=== PATIENT | female | born 1955 | race Caucasian/White ===

== ENCOUNTER 2021-07-26 04:38 | Inpatient (IN) | payer MEDICARE, BC ==
[~2021-07-26] VITALS: Ht 177.8 cm; Wt 71.2 kg
--- NOTE | 2021-07-26 04:48 | NUR ---
pt bib ra for c/o left hip pain. pt a/o. has iv to right ac placed by ra.
--- NOTE | 2021-07-26 04:52 | NUR ---
Dr. Jean Baptiste at bedside for MSE.
[2021-07-26] MEDS ORDERED: MELO-107 PO (04:54)
[2021-07-26] MEDS ORDERED: GABA600T12 PO (04:54)
[2021-07-26] MEDS ORDERED: BUPR100T6 PO (04:54)
[2021-07-26] MEDS ORDERED: FLUO10CA29 PO (04:54)
[2021-07-26] MEDS ORDERED: KETOROLAC TROMETHAMINE 15 MG INJ ONE (05:15)
[2021-07-26] MEDS ORDERED: KETOROLAC TROMETHAMINE 15 MG INJ IVP ONE (05:15)
[2021-07-26] MEDS ORDERED: PROCHLORPERAZINE EDISYLATE 10 MG/2 ML VIAL ONE (05:15)
[2021-07-26] MEDS ORDERED: PROCHLORPERAZINE EDISYLATE 10 MG/2 ML VIAL IV ONE (05:15)
[2021-07-26] MEDS ORDERED: HYDROMORPHONE 2 MG/1 ML DISP.SYRIN ONE (05:15)
[2021-07-26] MEDS ORDERED: HYDROMORPHONE 1 MG/1 ML DISP.SYRIN IV ONE (05:15)
[2021-07-26 05:45] LABS: HEMATOCRIT 35.2 % (31.2-41.9); MEAN CORPUSCULAR HEMOGLOBIN 30.5 uug (24.7-32.8); MEAN CORPUSCULAR VOLUME 87.3 fL (75.5-95.3); PLATELET COUNT (AUTO) 231 K/uL (179-408)
--- NOTE | 2021-07-26 06:17 | NUR ---
f/c insertion was unsuccessful by multiple attempts by 3 nurses. MD momin.
[2021-07-26 06:20] LABS: BILIRUBIN,DIRECT 0.1 mg/dL (0.0-0.2); BILIRUBIN,TOTAL 0.3 mg/dL (0.2-1.0); CREATININE 0.9 mg/dL (0.6-1.3); TOTAL PROTEIN, SERUM 6.7 g/dL (6.4-8.2)
--- NOTE | 2021-07-26 06:34 | NUR ---
second call placed to [facility] for admission.
--- NOTE | 2021-07-26 07:52 | NUR ---
[facility] WAS CALLED WAITING FOR CALLBACK.
--- NOTE | 2021-07-26 08:05 | NUR ---
FRED PERKINS FROM [facility] CALLED PATIENT ACCEPTED FOR ADMISSION.
[2021-07-26] MEDS ORDERED: GABAPENTIN 300 MG CAPSULE PO SCH (09:00)
[2021-07-26] MEDS ORDERED: MORPHINE SULFATE 2 MG/1 ML DISP.SYRIN IV PRN (09:30)
[2021-07-26] MEDS ORDERED: REMEDY ESSENTIAL ZINC PASTE 113 GM TP PRN (09:30)
[2021-07-26] MEDS ORDERED: ONDANSETRON 4 MG/2 ML VIAL IV PRN (09:30)
--- NOTE | 2021-07-26 09:30 | NUR ---
Pt. admitted to [facility] , under care of CARE SUPPORT REPRESENTATIVE GREGORIO. Belongs List completed
[2021-07-26 09:40] VITALS: BP 121/57
[2021-07-26] MEDS ORDERED: EPHEDRINE SULFATE 50 MG/ML AMPUL ONE (10:18)
[2021-07-26] MEDS ORDERED: KETOROLAC TROMETHAMINE 30 MG INJ ONE (10:18)
[2021-07-26] MEDS ORDERED: CEFAZOLIN 1 G VIAL ONE (10:18)
[2021-07-26] MEDS ORDERED: LIDOCAINE-MPF 2% 5 ML VIAL ONE (10:18)
[2021-07-26] MEDS ORDERED: PROPOFOL 200 MG/20 ML BOTTLE ONE (10:18)
[2021-07-26] MEDS ORDERED: DEXAMETHASONE SOD PHOSPHATE 4 MG INJ ONE (10:18)
--- NOTE | 2021-07-26 10:20 | NUR ---
Received pt from ER after falling out of bed while sleeping at home. Pt lives alone and called for ambulance herself with her cell phone. Pt is a/o x 4, never been hospitalized before and has not had a fall prior to this admission. Pt is vaccinated with Pfizer x 2 plus two additional boosters. Pt is admitted to [facility] floor for left hip fracture, complains of pain. Vitals on admission 98.5 temp, BP 121/57, HR 75, rr18, SpO2 96% on room air. Comfort measures provided, call light within reach, will continue to monitor Pt placed on NPO per order. IV Fluids provided.
[2021-07-26] MEDS: IV D5 1/2 NS 1000 ML 1,000 ML IV PRN (10:55)
[2021-07-26] MEDS: MORPHINE SULFATE 4 MG/1 ML DISP.SYRIN IV PRN ×3 (11:56→20:26)
[2021-07-26] MEDS ORDERED: BUPR-319 PO (12:06)
[2021-07-26 15:46] VITALS: BP 126/62
--- NOTE | 2021-07-26 15:52 | NUR ---
Procedure consent signed by patient, she is aware of procedure details, Dr Merritt consulted.
--- NOTE | 2021-07-26 18:51 | NUR ---
Pt will have a procedure tomorrow at 0830, crab picker at 0800. Blood consent signed, procedure consent signed. Pt will be placed NPO at midnight. Dr. Merritt will be doing an IM nailing of the left intertrochanteric hip fracture. Preop checklist completed.
--- NOTE | 2021-07-26 19:30 | NUR ---
Received pt awake, alert and orientedx4. Pt in no acute respiratory distress. Iv intact. Pt stating she is in pain and want stronger pain medication and her depression medication.Safety and comfort provided. Will continue to monitor.
--- NOTE | 2021-07-26 19:45 | NUR ---
Notify iphone developer regarding pt concern. Americo IBARRA ordered to continue the pt depression medication Wellbutrin xl 300mg .
[2021-07-26 20:00] VITALS: BP 137/71
--- NOTE | 2021-07-26 22:29 | NUR ---
at morphine 4mg prn given for pt left hip pain. Pt tolerated it well.After an hour pt stated it felt a bit better but there's still pain. Will continue to monitor.
[2021-07-27] VITALS (7 sets, daily range): BP systolic 112–142; BP diastolic 61–77
[2021-07-27] MEDS: HYDROMORPHONE 1 MG/1 ML DISP.SYRIN IV PRN ×2 (00:56→05:04)
[2021-07-27] MEDS: IV D5 1/2 NS 1000 ML 1,000 ML IV PRN (01:01)
--- NOTE | 2021-07-27 02:03 | NUR ---
Dilaudid 0.5mg prn given to pt for left hip pain .Pt tolerated it well. After an hour pt stated she felt better but still feel a bit painful.Will continue to monitor. Addendum: 07/27/21 at 0513 by JOHN CHRISTINA RN Dilaudid 0.5mg prn given at 0056H for left hip pain.Pt tolerated it well. After an hour pt stated she felt better but still feel a bit painful.Will continue to monitor.
--- NOTE | 2021-07-27 05:07 | NUR ---
0504H Dilaudid 0.5mg prn given to pt for left hip pain. Pt tolerated it well. Will continue to monitor.
--- NOTE | 2021-07-27 06:07 | NUR ---
Pt Dilaudid effective .Pt stated pain subsided. Pt slept intermittently. Iv intact. Preop checklist done. Safety and comfort provided. Vital signs within normal limit. All needs are met. Pugh catheter intact. Will endorse to incoming nurse for continuity of care.
[2021-07-27 07:46] LABS: MEAN CORPUSCULAR HEMOGLOBIN 29.9 uug (24.7-32.8); MEAN CORPUSCULAR VOLUME 87.4 fL (75.5-95.3); PLATELET COUNT (AUTO) 197 K/uL (179-408)
[2021-07-27] MEDS ORDERED: VANCOMYCIN 1000 MG VIAL ONE (07:46)
[2021-07-27] MEDS ORDERED: BUPIVACAINE PF 0.5% 30 ML VIAL ONE (07:46)
[2021-07-27] MEDS: PANTOPRAZOLE SODIUM 40 MG VIAL IV SCH (08:04)
[2021-07-27 08:05] LABS: CREATININE 0.7 mg/dL (0.6-1.3); POTASSIUM 3.8 mmol/L (3.5-5.1)
[2021-07-27] MEDS: GABAPENTIN 300 MG CAPSULE PO SCH (08:15)
--- NOTE | 2021-07-27 08:15 | NUR ---
Pt is a/o x 4, IV sites intact and patent. Pt has been picked up by OR nurse to have procedure at 0830. Family and friends aware of surgery time, will contact when pt returns from surgery.
[2021-07-27] MEDS ORDERED: HYDROMORPHONE 2 MG/1 ML DISP.SYRIN ONE (08:44)
[2021-07-27] MEDS ORDERED: Medication Not On Formulary EA (Gabapentin 600 MG) PO SCH (09:00)
[2021-07-27] MEDS ORDERED: HYDROMORPHONE 1 MG/1 ML DISP.SYRIN ONE (10:50)
--- NOTE | 2021-07-27 12:05 | NUR ---
Pt has returned form surgery, vitals 98.2 temp, BP 130/68, HR 70 SpO2 94% on room air. Pt is to be placed on fluids, orders for full liquid diet have been placed by MD, when tolerating food, may be placed on heplock. Pt to be out of bed tomorrow 07/27/21 with physical therapy. Left leg to be 50% weight-baring with front wheel walker. Family notified of return from surgery and pt status. Comfort measures provided, call light within reach, Will continue to monitor.
[2021-07-27] MEDS: IV D5W-0.45% NS +20 KCL 1,000 ML IV PRN (15:46)
[2021-07-27] MEDS: CEFAZOLIN 1 G in IV DEXTROSE 5% 50 ML IV SCH (16:53)
[2021-07-27] MEDS: HYDROCODONE/APAP 10-325 MG TABLET PO PRN (18:52)
--- NOTE | 2021-07-27 19:01 | NUR ---
Administered PRN pain medication for hip pain. Pt is now comfortable in bed, will endorse to shift supervisor rn.
--- NOTE | 2021-07-27 19:30 | NUR ---
RECEIVED PT ALERT AND ORIENTED X 4. NO RESPIRATORY DISTRESS. IV SITE ON L WRIST PATENT AND INTACT. D5 NS+KCL INFUSING AT 75 ML/HR. PEREZ CATH DRAINING WELL. CALL LIGHT IN REACH. SAFETY MEASURES PLACED. WILL CONTINUE TO MONITOR.
[2021-07-27] MEDS: MORPHINE SULFATE 4 MG/1 ML DISP.SYRIN IV PRN (23:02)
--- NOTE | 2021-07-27 23:02 | NUR ---
PT COMPLAINING OF HIP PAIN. PAIN SCORE OF 9/10. MORPHINE ADMINISTERED. WILL REASSESS.
--- NOTE | 2021-07-28 00:02 | NUR ---
PER PT, PAIN SUBSIDED TO 2/10. PT COMFORTABLE IN BED. VITAL SIGNS WNL. PEREZ CATH INTACT. CALL LIGHT WITHIN REACH. WILL CONTINUE TO MONITOR.
[2021-07-28] MEDS: CEFAZOLIN 1 G in IV DEXTROSE 5% 50 ML IV SCH (01:17)
--- NOTE | 2021-07-28 03:00 | NUR ---
PT REQUESTED FOR PAIN MEDS FOR HIP PAIN WITH PAIN SCORE OF 7/10. NORCO ADMINISTERED. PLACED PT IN HIGH FOWLERS. ASSISTED TO DRINK WATER. ASPIRATION PRECAUTION DONE.
[2021-07-28] MEDS: HYDROCODONE/APAP 10-325 MG TABLET PO PRN (03:01)
[2021-07-28 04:00] VITALS: BP 124/69
[2021-07-28 06:28] LABS: HEMATOCRIT 29.7 % (31.2-41.9); MEAN CORPUSCULAR HEMOGLOBIN 30.3 uug (24.7-32.8); MEAN CORPUSCULAR VOLUME 86.9 fL (75.5-95.3); PLATELET COUNT (AUTO) 156 K/uL (179-408)
[2021-07-28 06:42] LABS: CREATININE 0.8 mg/dL (0.6-1.3)
[2021-07-28] MEDS: IV D5W-0.45% NS +20 KCL 1,000 ML IV PRN (06:47)
[2021-07-28] MEDS: GABAPENTIN 300 MG CAPSULE PO SCH (09:05)
[2021-07-28] MEDS: PANTOPRAZOLE SODIUM 40 MG VIAL IV SCH (09:05)
[2021-07-28] MEDS: ENOXAPARIN SODIUM 40 MG/0.4 ML DISP.SYRIN SQ SCH (09:06)
--- NOTE | 2021-07-28 09:15 | NUR ---
Pt is a/o x 4, no complaint of pain this morning. Pt is pending physical therapy evaluation. Will continue to monitor.
[2021-07-28] MEDS ORDERED: MIRALAX 17 GM POWD.PACK PO PRN (11:45)
[2021-07-28 12:10] VITALS: BP 106/51
[2021-07-28] MEDS: IV LACTATED RINGERS SOLUTION 1,000 ML IV PRN (14:33)
[2021-07-28 16:13] VITALS: BP 118/63
[2021-07-28] MEDS: ACETAMINOPHEN 325 MG TABLET PO PRN (16:27)
[2021-07-28] MEDS: MORPHINE SULFATE 4 MG/1 ML DISP.SYRIN IV PRN ×2 (16:27→20:22)
[2021-07-28 20:54] VITALS: BP 117/64
[2021-07-29] MEDS: MORPHINE SULFATE 4 MG/1 ML DISP.SYRIN IV PRN ×3 (01:36→08:34)
[2021-07-29] MEDS: ACETAMINOPHEN 325 MG TABLET PO PRN (01:45)
[2021-07-29] MEDS: IV LACTATED RINGERS SOLUTION 1,000 ML IV PRN (03:50)
[2021-07-29 04:45] VITALS: BP 132/72
[2021-07-29 06:38] LABS: HEMATOCRIT 27.9 % (31.2-41.9); MEAN CORPUSCULAR HEMOGLOBIN 30.6 uug (24.7-32.8); MEAN CORPUSCULAR VOLUME 86.6 fL (75.5-95.3); PLATELET COUNT (AUTO) 153 K/uL (179-408)
[2021-07-29 07:42] LABS: CREATININE 0.7 mg/dL (0.6-1.3); MAGNESIUM 1.9 mg/dL (1.8-2.4); POTASSIUM 3.9 mmol/L (3.5-5.1)
[2021-07-29] MEDS: PANTOPRAZOLE SODIUM 40 MG VIAL IV SCH (08:31)
[2021-07-29] MEDS: GABAPENTIN 300 MG CAPSULE PO SCH (08:34)
[2021-07-29] MEDS: ENOXAPARIN SODIUM 40 MG/0.4 ML DISP.SYRIN SQ SCH (09:18)
[2021-07-29 11:35] VITALS: BP 91/45
--- NOTE | 2021-07-29 13:07 | NUR ---
Discharged patient to ARU. No acute distress noted. Left hip surgery dressing intact, no drainage noted. Belonging list signed. Discharge instructions given noted with understanding.
[2021-07-30] MEDS ORDERED: PANTOPRAZOLE SODIUM 40 MG TABLET.DR PO SCH (07:00)
== END 2021-07-29 13:13 | DRG 482 ==
LOC: ER 04:41 → MEDSURG3 09:13
PROVIDERS: ADMIT Nurse Practitioner Family; ATTEND Nurse Practitioner Family
PROC: 0QS706Z Reposition Left Upper Femur with Intramedullary Internal Fixation Device, Open Approach (ICD-10-PCS; principal; 2021-07-27)
DX: S72.142A Displaced intertrochanteric fracture of left femur, initial encounter for closed fracture (principal); W06.XXXA Fall from bed, initial encounter; F32.A Depression, unspecified; F41.9 Anxiety disorder, unspecified; Z20.822 Contact with and (suspected) exposure to COVID-19; R73.9 Hyperglycemia, unspecified; Y93.9 Activity, unspecified; Y92.013 Bedroom of single-family (private) house as the place of occurrence of the external cause
CPT/HCPCS: 36415; 51702; 71045; 73502; 73503; 83735; 85025; 85730; 86850; 86900; 86901; 93005; 93307; 97161; A4649; A4663; A6209; C1713; C9113; G0378; J0690; J0780; J1100; J1170; J1650; J1885; J2270; J3370; J3490; J7060; J7120

== ENCOUNTER 2021-07-29 13:31 | Inpatient (IN) | payer MEDICARE, BC ==
[~2021-07-29] VITALS: Ht 177.8 cm; Wt 71.2 kg
[~2021-07-29 13:31] MED LIST: BUPR-319 PO; FLUO10CA29 PO; GABA600T12 PO; MELO-107 PO
[2021-07-29 16:00] VITALS: BP 114/48
[2021-07-29] MEDS ORDERED: MORPHINE SULFATE 2 MG/1 ML DISP.SYRIN IV PRN (16:30)
[2021-07-29] MEDS ORDERED: MIRALAX 17 GM POWD.PACK PO PRN (16:30)
[2021-07-29] MEDS: DOCUSATE SODIUM 250 MG CAPSULE PO SCH (16:40)
[2021-07-29] MEDS ORDERED: OXYCODONE HCL 5 MG TABLET PO PRN (17:45)
--- NOTE | 2021-07-29 18:54 | NUR ---
At 1330 patient admitted to ARU from [facility]. Incision site still with original dressing, dry and intact, no noted drainage.
[2021-07-29 20:31] VITALS: BP 113/60
[2021-07-29] MEDS: REMEDY ESSENTIAL ZINC PASTE 113 GM TOP SCH (20:58)
[2021-07-30] MEDS: OXYCODONE HCL 5 MG TABLET PO PRN ×6 (01:06→23:42)
[2021-07-30 04:43] VITALS: BP 138/71
--- NOTE | 2021-07-30 06:22 | NUR ---
Noted with pimple like, warm to touch on the right medial arm. wound consult ordered. photo in chart. will continue to monitor.
--- NOTE | 2021-07-30 06:41 | NUR ---
Patient remained stable during the shift. No acute distress identified. PRN pain med given as ordered. Incision site intact, no bleeding, original dressing intact. FC intact, draining well. Patient denies discomfort. All needs attended. All due meds given. kept call light within reach. will endorse to the next shift for continuity of care.
--- NOTE | 2021-07-30 07:30 | NUR ---
Received patient in bed awake alert and oriented 3. Patient is on room air. Bed in high silva position No respiratory distress noted at this time. Patient is on seizure precautions. Safety precautions are in place. Will continue to monitor.
[2021-07-30 09:40] VITALS: BP 116/72
[2021-07-30] MEDS: buPROPion XL 150 MG TAB.SR.24H PO SCH (10:08)
[2021-07-30] MEDS: FLUOXETINE HCL 20 MG CAPSULE PO SCH (10:08)
[2021-07-30] MEDS: GABAPENTIN 300 MG CAPSULE PO SCH (10:08)
[2021-07-30] MEDS: DOCUSATE SODIUM 250 MG CAPSULE PO SCH (10:09)
[2021-07-30] MEDS: REMEDY ESSENTIAL ZINC PASTE 113 GM TOP SCH ×2 (10:20→22:17)
[2021-07-30] MEDS: ENOXAPARIN SODIUM 40 MG/0.4 ML DISP.SYRIN SQ SCH (14:53)
[2021-07-30 18:11] VITALS: BP 96/49
--- NOTE | 2021-07-30 19:15 | NUR ---
Received patient on bed, awake, no shortness of breath, alert and oriented x3-4, No complaint of pain at this time. Safety precautions provided, call light placed within reach.
--- NOTE | 2021-07-30 20:06 | NUR ---
Pt left in bed, no sign of distress noted at this time. Pt was up and walking with PT earlier in the day. She did report some dizziness on standing but stated she felt better once she sat down. All medications given as ordered. Safety precautions implemented. Will endorse to oncoming nurse.
--- NOTE | 2021-07-30 20:20 | NUR ---
Complaint of pain at the operative site using the call light , oxycodone 10mg PO given, Pain relieved after an hour administration.
[2021-07-30 20:21] VITALS: BP 107/58
[2021-07-31] MEDS: OXYCODONE HCL 5 MG TABLET PO PRN ×5 (03:51→21:56)
[2021-07-31 04:21] VITALS: BP 105/63
--- NOTE | 2021-07-31 06:08 | NUR ---
Slept intermittently, no shortness of breath noted. oxycodone given 3x within the shift. Repositioned for comfort, Vitally stable.
[2021-07-31 06:47] LABS: HEMATOCRIT 25.4 % (31.2-41.9); MEAN CORPUSCULAR HEMOGLOBIN 30.7 uug (24.7-32.8); MEAN CORPUSCULAR VOLUME 86.5 fL (75.5-95.3); PLATELET COUNT (AUTO) 212 K/uL (179-408)
[2021-07-31 07:30] VITALS: BP 125/62
[2021-07-31] MEDS: GABAPENTIN 300 MG CAPSULE PO SCH (08:05)
[2021-07-31] MEDS: ENOXAPARIN SODIUM 40 MG/0.4 ML DISP.SYRIN SQ SCH (08:05)
[2021-07-31] MEDS: FLUOXETINE HCL 20 MG CAPSULE PO SCH (08:06)
[2021-07-31] MEDS: buPROPion XL 150 MG TAB.SR.24H PO SCH (08:06)
[2021-07-31] MEDS: REMEDY ESSENTIAL ZINC PASTE 113 GM TOP SCH ×2 (08:06→20:08)
[2021-07-31] MEDS: DOCUSATE SODIUM 250 MG CAPSULE PO SCH (08:06)
[2021-07-31] MEDS: MIRALAX 17 GM POWD.PACK PO SCH ×2 (09:00→18:05)
[2021-07-31 15:26] VITALS: BP 97/55
[2021-07-31 20:24] VITALS: BP 108/56
[2021-08-01] MEDS ORDERED: NEOMY/BACITRAC/POLYMI OINT 28.35 GM TUBE TOP PRN (00:15)
[2021-08-01] MEDS: ACETAMINOPHEN 325 MG TABLET PO PRN (00:26)
[2021-08-01] MEDS: ZOLPIDEM 5 MG TABLET PO PRN (00:26)
[2021-08-01 04:24] VITALS: BP 128/60
[2021-08-01 07:47] VITALS: BP 142/69
[2021-08-01] MEDS: DOCUSATE SODIUM 250 MG CAPSULE PO SCH (08:23)
[2021-08-01] MEDS: buPROPion XL 150 MG TAB.SR.24H PO SCH (08:23)
[2021-08-01] MEDS: MORPHINE SULFATE SR 15 MG TABLET.SA PO SCH ×2 (08:23→20:38)
[2021-08-01] MEDS: FLUOXETINE HCL 20 MG CAPSULE PO SCH (08:23)
[2021-08-01] MEDS: GABAPENTIN 300 MG CAPSULE PO SCH (08:23)
[2021-08-01] MEDS: MIRALAX 17 GM POWD.PACK PO SCH (08:23)
[2021-08-01] MEDS: ENOXAPARIN SODIUM 40 MG/0.4 ML DISP.SYRIN SQ SCH (08:24)
[2021-08-01] MEDS: REMEDY ESSENTIAL ZINC PASTE 113 GM TOP SCH ×2 (08:25→20:37)
--- NOTE | 2021-08-01 09:05 | NUR ---
INDIVIDUALIZED PLAN OF CARE
--- NOTE | 2021-08-01 11:27 | NUR ---
WOUND CARE CONSULT: PT SEEN FOR SMALL CRUSTED RAISED AREA WITHOUT DRAINAGE TO RT ARM (NEAR ANTECUBITAL REGION). RECOMMENDATIONS MADE FOR WOUND CARE/SKIN PROTECTION. DISCUSSED WITH NURSING STAFF. Addendum: 08/01/21 at 1129 by CATHY HOOD RN Amended: Links added.
[2021-08-01] MEDS: NEOMY/BACITRAC/POLYMI OINT 28.35 GM TUBE TOP SCH (11:45)
[2021-08-01 12:00] VITALS: BP 114/49
[2021-08-01 16:00] VITALS: BP 113/56
[2021-08-01] MEDS: OXYCODONE HCL 5 MG TABLET PO PRN (16:07)
--- NOTE | 2021-08-01 18:33 | NUR ---
Patient received care well throughout shift with minimal complaints of pain or distress during shift. Wound management completed. Pain managed by pharmacological means. Bed left in lowest position with call light within reach. Comfort measures provided. Will endorse information to PM nurse.
[2021-08-01 20:42] VITALS: BP 127/52
[2021-08-02 04:54] VITALS: BP 134/62
[2021-08-02 07:52] VITALS: BP 130/73
[2021-08-02] MEDS: MIRALAX 17 GM POWD.PACK PO SCH (09:21)
[2021-08-02] MEDS: GABAPENTIN 300 MG CAPSULE PO SCH (09:21)
[2021-08-02] MEDS: FLUOXETINE HCL 20 MG CAPSULE PO SCH (09:21)
[2021-08-02] MEDS: DOCUSATE SODIUM 250 MG CAPSULE PO SCH (09:21)
[2021-08-02] MEDS: buPROPion XL 150 MG TAB.SR.24H PO SCH (09:21)
[2021-08-02] MEDS: ENOXAPARIN SODIUM 40 MG/0.4 ML DISP.SYRIN SQ SCH (09:28)
[2021-08-02] MEDS: NEOMY/BACITRAC/POLYMI OINT 28.35 GM TUBE TOP SCH (09:29)
[2021-08-02] MEDS: REMEDY ESSENTIAL ZINC PASTE 113 GM TOP SCH ×2 (09:29→20:52)
[2021-08-02] MEDS: MORPHINE SULFATE SR 15 MG TABLET.SA PO SCH ×2 (09:30→20:52)
[2021-08-02] MEDS: ENSURE WITH FIBER 237 ML LIQUID (CHOCOLATE) PO SCH (09:31)
--- NOTE | 2021-08-02 10:19 | NUR ---
INTERDISCIPLINARY TEAM CONFERENCE
--- NOTE | 2021-08-02 11:43 | NUR ---
Dr. Avery Soni in the unit and received an order to remove Pugh catheter.
[2021-08-02 16:00] VITALS: BP 98/52
--- NOTE | 2021-08-02 16:00 | NUR ---
Patient voiding freely with assistance to the bathroom. She denies any pain or discomfort at this time. Assisted with her needs. Call light and frequently used items within reach.
[2021-08-02 20:00] VITALS: BP 97/51
[2021-08-03 04:00] VITALS: BP 103/58
--- NOTE | 2021-08-03 06:25 | NUR ---
Slept well. No complaint presented. Needs attended and met. Continue current rehab plan of care.
[2021-08-03 07:42] VITALS: BP 109/60
[2021-08-03] MEDS: DOCUSATE SODIUM 250 MG CAPSULE PO SCH (08:28)
[2021-08-03] MEDS: FLUOXETINE HCL 20 MG CAPSULE PO SCH (08:28)
[2021-08-03] MEDS: GABAPENTIN 300 MG CAPSULE PO SCH (08:28)
[2021-08-03] MEDS: MIRALAX 17 GM POWD.PACK PO SCH (08:28)
[2021-08-03] MEDS: buPROPion XL 150 MG TAB.SR.24H PO SCH (08:28)
[2021-08-03] MEDS: MORPHINE SULFATE SR 15 MG TABLET.SA PO SCH ×2 (08:29→21:05)
[2021-08-03] MEDS: NEOMY/BACITRAC/POLYMI OINT 28.35 GM TUBE TOP SCH (08:31)
[2021-08-03] MEDS: ENOXAPARIN SODIUM 40 MG/0.4 ML DISP.SYRIN SQ SCH (08:31)
[2021-08-03] MEDS: REMEDY ESSENTIAL ZINC PASTE 113 GM TOP SCH ×2 (08:31→21:02)
[2021-08-03] MEDS: ENSURE WITH FIBER 237 ML LIQUID (CHOCOLATE) PO SCH (08:32)
[2021-08-03 15:41] VITALS: BP 94/44
--- NOTE | 2021-08-03 18:40 | NUR ---
Patient remains alert, oriented x 4, not in any form of distress, on room air. She denies any pain or discomfort at this time. Patient is compliant with medications and care. Assist with her needs promptly. Call light and frequently used items placed within patient's reach.
[2021-08-03 20:00] VITALS: BP 104/64
[2021-08-04] MEDS: OXYCODONE HCL 5 MG TABLET PO PRN ×4 (01:27→22:51)
[2021-08-04 04:06] VITALS: BP 115/63
--- NOTE | 2021-08-04 05:29 | NUR ---
Received to care, lying in bed, pleasant upon approach. Call light in reach, all needs provided for. PRN oXY IR was given at 0127 for 8/10 pain to left hip. She fell asleep, but reported this morning that she continues to have good relief, even when ambulating to the bathroom. Her routine OxyContin was given at bedtime, but her pain was only around 5/10, at that time. Will continue to monitor closely.
[2021-08-04 08:04] VITALS: BP 128/56
[2021-08-04] MEDS: GABAPENTIN 300 MG CAPSULE PO SCH (09:59)
[2021-08-04] MEDS: buPROPion XL 150 MG TAB.SR.24H PO SCH (10:00)
[2021-08-04] MEDS: MIRALAX 17 GM POWD.PACK PO SCH (10:00)
[2021-08-04] MEDS: FLUOXETINE HCL 20 MG CAPSULE PO SCH (10:00)
[2021-08-04] MEDS: DOCUSATE SODIUM 250 MG CAPSULE PO SCH (10:00)
[2021-08-04] MEDS: MORPHINE SULFATE SR 15 MG TABLET.SA PO SCH ×2 (10:01→20:31)
[2021-08-04] MEDS: REMEDY ESSENTIAL ZINC PASTE 113 GM TOP SCH ×2 (10:02→20:31)
[2021-08-04] MEDS: NEOMY/BACITRAC/POLYMI OINT 28.35 GM TUBE TOP SCH (10:02)
[2021-08-04] MEDS: ENSURE WITH FIBER 237 ML LIQUID (CHOCOLATE) PO SCH (10:05)
[2021-08-04] MEDS: ENOXAPARIN SODIUM 40 MG/0.4 ML DISP.SYRIN SQ SCH (10:07)
[2021-08-04 16:00] VITALS: BP 103/45
--- NOTE | 2021-08-04 19:15 | NUR ---
Received patient on bed, awake, not in respiratory distress, no complaint of pain at this time. Safety precautions provided. Call light placed within reach.
[2021-08-04 20:14] VITALS: BP 99/55
[2021-08-04] MEDS: ZOLPIDEM 5 MG TABLET PO PRN (20:31)
[2021-08-05] MEDS: OXYCODONE HCL 5 MG TABLET PO PRN (04:27)
[2021-08-05 04:41] VITALS: BP 154/72
--- NOTE | 2021-08-05 05:43 | NUR ---
Slept intermittently, complaint of paint at operative site, due pain medicine given, oycontin 10mg PO given 2x within the shift. Refused to get out of bed for bathroom, patient state shes more comfortable getting out bed at daytime . Needs stool softener, for continuity of care.
[2021-08-05 07:25] VITALS: BP 120/69
[2021-08-05] MEDS: MORPHINE SULFATE SR 15 MG TABLET.SA PO SCH ×2 (07:54→20:26)
[2021-08-05] MEDS: DOCUSATE SODIUM 250 MG CAPSULE PO SCH (08:01)
[2021-08-05] MEDS: buPROPion XL 150 MG TAB.SR.24H PO SCH (08:01)
[2021-08-05] MEDS: FLUOXETINE HCL 20 MG CAPSULE PO SCH (08:01)
[2021-08-05] MEDS: GABAPENTIN 300 MG CAPSULE PO SCH (08:02)
[2021-08-05] MEDS: MIRALAX 17 GM POWD.PACK PO SCH (08:02)
[2021-08-05] MEDS: ENSURE WITH FIBER 237 ML LIQUID (CHOCOLATE) PO SCH (08:02)
[2021-08-05] MEDS: REMEDY ESSENTIAL ZINC PASTE 113 GM TOP SCH ×2 (08:10→20:27)
[2021-08-05] MEDS: NEOMY/BACITRAC/POLYMI OINT 28.35 GM TUBE TOP SCH (08:10)
[2021-08-05] MEDS: ENOXAPARIN SODIUM 40 MG/0.4 ML DISP.SYRIN SQ SCH (08:10)
[2021-08-05 15:06] VITALS: BP 120/80
--- NOTE | 2021-08-05 19:00 | NUR ---
Received patient on bed, awake, and oriented x3-4, no sogn sof respiratory distress, no complaint of pain at this time. Safety precautions provided, call light placed within reach.
[2021-08-05] MEDS ORDERED: BISACODYL 10 MG SUPP.RECT RC PRN (19:45)
[2021-08-05 19:55] VITALS: BP 95/52
[2021-08-06] MEDS: OXYCODONE HCL 5 MG TABLET PO PRN ×2 (00:28→05:36)
[2021-08-06] MEDS ORDERED: BISACODYL 10 MG SUPP.RECT RC PRN ×2 (03:03→07:27)
[2021-08-06 04:19] VITALS: BP 124/63
--- NOTE | 2021-08-06 05:37 | NUR ---
No bowel movement for 4 days,Bisacodyl 1 suppository given per rectum.
--- NOTE | 2021-08-06 05:49 | NUR ---
Slept intermittently, went out of bed 2x for voiding in the bathroom. Received oxycodone 2x within the shift, pain reduced after an hour of administration. Vitally stable. For continuity of care.
--- NOTE | 2021-08-06 06:30 | NUR ---
Went to the bathroom with walker with assist, with large bowel movement, soft in consistency, brown color.
[2021-08-06] MEDS: MORPHINE SULFATE SR 15 MG TABLET.SA PO SCH ×2 (08:20→20:21)
[2021-08-06] MEDS: buPROPion XL 150 MG TAB.SR.24H PO SCH (08:21)
[2021-08-06] MEDS: DOCUSATE SODIUM 250 MG CAPSULE PO SCH (08:21)
[2021-08-06] MEDS: ENOXAPARIN SODIUM 40 MG/0.4 ML DISP.SYRIN SQ SCH (08:21)
[2021-08-06] MEDS: GABAPENTIN 300 MG CAPSULE PO SCH (08:21)
[2021-08-06] MEDS: MIRALAX 17 GM POWD.PACK PO SCH (08:22)
[2021-08-06] MEDS: ENSURE WITH FIBER 237 ML LIQUID (CHOCOLATE) PO SCH (08:22)
[2021-08-06] MEDS: FLUOXETINE HCL 20 MG CAPSULE PO SCH (08:22)
[2021-08-06] MEDS: NEOMY/BACITRAC/POLYMI OINT 28.35 GM TUBE TOP SCH (08:23)
[2021-08-06] MEDS: REMEDY ESSENTIAL ZINC PASTE 113 GM TOP SCH ×2 (08:23→20:22)
[2021-08-06 08:40] VITALS: BP 122/63
[2021-08-06 16:14] VITALS: BP 106/55
--- NOTE | 2021-08-06 19:15 | NUR ---
Received patient on bed, awake, no complaint of pain at this time, not in respiratory distress, with dressing at left hip and lateral side of left upper leg. Safety precautions provided, call light within reach.
[2021-08-06 20:41] VITALS: BP 90/40
[2021-08-07] MEDS: OXYCODONE HCL 5 MG TABLET PO PRN ×2 (00:05→06:01)
[2021-08-07 04:35] VITALS: BP 119/65
--- NOTE | 2021-08-07 05:25 | NUR ---
Slept well within the shift, no shortness of breath, received oxycodone 2x within the shift. Vitally stable. For continuity of care.
[2021-08-07 08:01] VITALS: BP 123/57
[2021-08-07] MEDS: FLUOXETINE HCL 20 MG CAPSULE PO SCH (08:43)
[2021-08-07] MEDS: buPROPion XL 150 MG TAB.SR.24H PO SCH (08:43)
[2021-08-07] MEDS: DOCUSATE SODIUM 250 MG CAPSULE PO SCH (08:43)
[2021-08-07] MEDS: GABAPENTIN 300 MG CAPSULE PO SCH (08:43)
[2021-08-07] MEDS: MIRALAX 17 GM POWD.PACK PO SCH (08:44)
[2021-08-07] MEDS: REMEDY ESSENTIAL ZINC PASTE 113 GM TOP SCH ×2 (08:44→20:38)
[2021-08-07] MEDS: ENSURE WITH FIBER 237 ML LIQUID (CHOCOLATE) PO SCH (08:44)
[2021-08-07] MEDS: MORPHINE SULFATE SR 15 MG TABLET.SA PO SCH ×2 (08:44→20:38)
[2021-08-07] MEDS: NEOMY/BACITRAC/POLYMI OINT 28.35 GM TUBE TOP SCH (08:45)
[2021-08-07] MEDS: ENOXAPARIN SODIUM 40 MG/0.4 ML DISP.SYRIN SQ SCH (08:52)
[2021-08-07 12:00] VITALS: BP 120/64
[2021-08-07 15:30] VITALS: BP 98/64
--- NOTE | 2021-08-07 17:41 | NUR ---
no events noted during shift, incision site is clean and dry. mukul are intact.
[2021-08-07 20:03] VITALS: BP 92/46
[2021-08-07] MEDS: ZOLPIDEM 5 MG TABLET PO PRN (22:38)
[2021-08-08] MEDS: OXYCODONE HCL 5 MG TABLET PO PRN (02:32)
[2021-08-08 04:09] VITALS: BP 113/64
[2021-08-08 07:49] VITALS: BP 110/57
[2021-08-08] MEDS: DOCUSATE SODIUM 250 MG CAPSULE PO SCH (08:02)
[2021-08-08] MEDS: MORPHINE SULFATE SR 15 MG TABLET.SA PO SCH ×2 (08:02→20:28)
[2021-08-08] MEDS: buPROPion XL 150 MG TAB.SR.24H PO SCH (08:03)
[2021-08-08] MEDS: GABAPENTIN 300 MG CAPSULE PO SCH (08:03)
[2021-08-08] MEDS: FLUOXETINE HCL 20 MG CAPSULE PO SCH (08:03)
[2021-08-08] MEDS: ENSURE WITH FIBER 237 ML LIQUID (CHOCOLATE) PO SCH (08:03)
[2021-08-08] MEDS: REMEDY ESSENTIAL ZINC PASTE 113 GM TOP SCH ×2 (08:04→20:28)
[2021-08-08] MEDS: MIRALAX 17 GM POWD.PACK PO SCH (08:04)
[2021-08-08] MEDS: ENOXAPARIN SODIUM 40 MG/0.4 ML DISP.SYRIN SQ SCH (08:04)
[2021-08-08] MEDS: NEOMY/BACITRAC/POLYMI OINT 28.35 GM TUBE TOP SCH (08:06)
[2021-08-08 15:26] VITALS: BP 112/40
[2021-08-08 20:00] VITALS: BP 116/53
[2021-08-09] MEDS: OXYCODONE HCL 5 MG TABLET PO PRN (03:49)
[2021-08-09 04:24] VITALS: BP 131/53
--- NOTE | 2021-08-09 06:25 | NUR ---
Shift End Report: VS stable. Slept good. Pain medications with relief. No significant event reported all night. Continue care as planned.
[2021-08-09] MEDS: buPROPion XL 150 MG TAB.SR.24H PO SCH (08:10)
[2021-08-09] MEDS: MORPHINE SULFATE SR 15 MG TABLET.SA PO SCH ×2 (08:10→20:20)
[2021-08-09] MEDS: FLUOXETINE HCL 20 MG CAPSULE PO SCH (08:10)
[2021-08-09] MEDS: DOCUSATE SODIUM 250 MG CAPSULE PO SCH (08:10)
[2021-08-09] MEDS: GABAPENTIN 300 MG CAPSULE PO SCH (08:11)
[2021-08-09] MEDS: MIRALAX 17 GM POWD.PACK PO SCH (08:11)
[2021-08-09] MEDS: ENSURE WITH FIBER 237 ML LIQUID (CHOCOLATE) PO SCH (08:11)
[2021-08-09] MEDS: NEOMY/BACITRAC/POLYMI OINT 28.35 GM TUBE TOP SCH (08:12)
[2021-08-09] MEDS: REMEDY ESSENTIAL ZINC PASTE 113 GM TOP SCH ×2 (08:12→20:20)
[2021-08-09] MEDS: ENOXAPARIN SODIUM 40 MG/0.4 ML DISP.SYRIN SQ SCH (08:13)
[2021-08-09 08:15] VITALS: BP 98/56
--- NOTE | 2021-08-09 15:53 | NUR ---
INTERDISCIPLINARY TEAM CONFERENCE
[2021-08-09 16:02] VITALS: BP 98/48
--- NOTE | 2021-08-09 17:54 | NUR ---
no distress noted, patient is independent with adls, incision is clean and dry.
[2021-08-09 20:08] VITALS: BP 104/51
[2021-08-10 03:43] VITALS: BP 108/49
[2021-08-10] MEDS: OXYCODONE HCL 5 MG TABLET PO PRN (04:10)
[2021-08-10 07:56] VITALS: BP 105/46
--- NOTE | 2021-08-10 08:15 | NUR ---
Received patient from quill winder nurse. no distress, but verbalized that is having pain in her hip area and asked for her prescribed pain medications and was administered shortly. patient is resting in bed.
[2021-08-10] MEDS: MORPHINE SULFATE SR 15 MG TABLET.SA PO SCH ×2 (08:18→20:04)
[2021-08-10] MEDS: MIRALAX 17 GM POWD.PACK PO SCH (08:18)
[2021-08-10] MEDS: FLUOXETINE HCL 20 MG CAPSULE PO SCH (08:19)
[2021-08-10] MEDS: GABAPENTIN 300 MG CAPSULE PO SCH (08:19)
[2021-08-10] MEDS: RIVAROXABAN 10 MG TABLET PO SCH (08:20)
[2021-08-10] MEDS: DOCUSATE SODIUM 250 MG CAPSULE PO SCH (08:21)
[2021-08-10] MEDS: buPROPion XL 150 MG TAB.SR.24H PO SCH (08:21)
[2021-08-10] MEDS: ENSURE WITH FIBER 237 ML LIQUID (CHOCOLATE) PO SCH (08:26)
[2021-08-10] MEDS: REMEDY ESSENTIAL ZINC PASTE 113 GM TOP SCH ×2 (09:29→20:04)
[2021-08-10] MEDS: NEOMY/BACITRAC/POLYMI OINT 28.35 GM TUBE TOP PRN ×2 (09:30→09:31)
[2021-08-10] MEDS: NEOMY/BACITRAC/POLYMI OINT 28.35 GM TUBE TOP SCH (09:32)
[2021-08-10 15:43] VITALS: BP 116/49
--- NOTE | 2021-08-10 17:26 | NUR ---
Removed patients mukul from her left side hip, thigh and knee. Patient tolerated well. Resting in bed now, no complains of pain, no distress noted.
[2021-08-10 21:00] VITALS: BP 106/53
[2021-08-11] MEDS: OXYCODONE HCL 5 MG TABLET PO PRN ×2 (01:15→06:35)
[2021-08-11 08:42] VITALS: BP 114/73
[2021-08-11] MEDS: MIRALAX 17 GM POWD.PACK PO SCH (09:09)
[2021-08-11] MEDS: GABAPENTIN 300 MG CAPSULE PO SCH (09:09)
[2021-08-11] MEDS: FLUOXETINE HCL 20 MG CAPSULE PO SCH (09:09)
[2021-08-11] MEDS: buPROPion XL 150 MG TAB.SR.24H PO SCH (09:09)
[2021-08-11] MEDS: DOCUSATE SODIUM 250 MG CAPSULE PO SCH (09:09)
[2021-08-11] MEDS: MORPHINE SULFATE SR 15 MG TABLET.SA PO SCH ×2 (09:11→20:52)
[2021-08-11] MEDS: NEOMY/BACITRAC/POLYMI OINT 28.35 GM TUBE TOP PRN (09:20)
[2021-08-11] MEDS: RIVAROXABAN 10 MG TABLET PO SCH (09:23)
[2021-08-11] MEDS: REMEDY ESSENTIAL ZINC PASTE 113 GM TOP SCH ×2 (09:23→20:52)
[2021-08-11] MEDS: NEOMY/BACITRAC/POLYMI OINT 28.35 GM TUBE TOP SCH (09:24)
[2021-08-11] MEDS: ENSURE WITH FIBER 237 ML LIQUID (CHOCOLATE) PO SCH (09:25)
--- NOTE | 2021-08-11 13:00 | NUR ---
Received pt from prior RN. Noted x 3 incision on left hip. #1 left lateral knee are incision and #2 mid lateral thigh both with mukul no redness no drainage noted. #3 Left hip with serous drainage noted with steri strips. Pt denies any c/o pain. Reapplied ice on left hip. Call light is within reach.
[2021-08-11 15:16] VITALS: BP 110/55
[2021-08-11 20:00] VITALS: BP 91/44
[2021-08-12] MEDS: OXYCODONE HCL 5 MG TABLET PO PRN ×2 (02:44→14:50)
[2021-08-12 04:00] VITALS: BP 99/50
[2021-08-12] MEDS: ACETAMINOPHEN 325 MG TABLET PO PRN (06:49)
[2021-08-12 07:54] VITALS: BP 95/55
[2021-08-12] MEDS: MIRALAX 17 GM POWD.PACK PO SCH (09:05)
[2021-08-12] MEDS: ENSURE WITH FIBER 237 ML LIQUID (CHOCOLATE) PO SCH (09:05)
[2021-08-12] MEDS: MORPHINE SULFATE SR 15 MG TABLET.SA PO SCH (09:05)
[2021-08-12] MEDS: DOCUSATE SODIUM 250 MG CAPSULE PO SCH (09:05)
[2021-08-12] MEDS: GABAPENTIN 300 MG CAPSULE PO SCH (09:06)
[2021-08-12] MEDS: RIVAROXABAN 10 MG TABLET PO SCH (09:07)
[2021-08-12] MEDS: FLUOXETINE HCL 20 MG CAPSULE PO SCH (09:08)
[2021-08-12] MEDS: REMEDY ESSENTIAL ZINC PASTE 113 GM TOP SCH (09:08)
[2021-08-12] MEDS: buPROPion XL 150 MG TAB.SR.24H PO SCH (09:08)
[2021-08-12] MEDS: NEOMY/BACITRAC/POLYMI OINT 28.35 GM TUBE TOP PRN ×2 (09:29→10:13)
[2021-08-12] MEDS: NEOMY/BACITRAC/POLYMI OINT 28.35 GM TUBE TOP SCH (10:14)
--- NOTE | 2021-08-12 11:40 | NUR ---
Received patient resting on bed, awake, no complaint of pain at this time Medicated with MS Contin as ordered , not in respiratory distress, with dressing at left hip and lateral side of left upper leg intact. Safety precautions provided, call light within reach.
--- NOTE | 2021-08-12 16:30 | NUR ---
Pt Discharge home. All discharge instructions ,teaching ,and all personal belongings given to patient she verbalized understanding .Pt left in stable condition. ID band was removed, wheeled enriqueta to the lobby in a W/C by one of the staff. Left accompany by her friend an a private car
== END 2021-08-12 16:30 | disposition home health service (06) | DRG 560 ==
PROVIDERS: ADMIT Physical Medicine & Rehabilitation Pain Medicine; ATTEND Physical Medicine & Rehabilitation Pain Medicine
DX: S72.142D Displaced intertrochanteric fracture of left femur, subsequent encounter for closed fracture with routine healing (principal); D62 Acute posthemorrhagic anemia; W06.XXXD Fall from bed, subsequent encounter; Z80.7 Family history of other malignant neoplasms of lymphoid, hematopoietic and related tissues; R42 Dizziness and giddiness; R73.9 Hyperglycemia, unspecified; R79.89 Other specified abnormal findings of blood chemistry; Z80.49 Family history of malignant neoplasm of other genital organs
CPT/HCPCS: 36415; 73502; 85025; 97161; 97535-GO-CO; J1650; J2270